=== PATIENT | female | born 1960 | race Caucasian/White ===

== ENCOUNTER 2024-10-11 14:51 | Observation (INO) | payer OTHER ==
[~2024-10-11] VITALS: Ht 167.6 cm; Wt 68.0 kg
[2024-10-11 16:03] LABS: BASOPHILS ABSOLUTE AUTO 0.08 K/mm3 (0.00-0.23); BASOPHILS PERCENT AUTO 1 % (0-2); EOSINOPHILS ABSOLUTE AUTO 0.05 K/mm3 (0.00-0.68); EOSINOPHILS PERCENT AUTO 1 % (0-6); Hematocrit 45.2 % (33.0-51.0); Hemoglobin 15.8 g/dL (11.5-16.0); IMMATURE GRAN ABSOLUTE AUTO 0.06 K/mm3 (0.00-0.10); IMMATURE GRAN PERCENT AUTO 1 % (0-1); LYMPHOCYTES ABSOLUTE AUTO 2.75 K/mm3 (0.84-5.20); LYMPHOCYTES PERCENT AUTO 29 % (21-46); MONOCYTES ABSOLUTE AUTO 0.54 K/mm3 (0.16-1.47); MONOCYTES PERCENT AUTO 6 % (4-13); Mean Corpuscular HGB 36.7 pg (26.0-34.0); Mean Corpuscular Volume 105 fL (80-100); Mean Platelet Volume 9.7 fL (9.1-12.4); NEUTROPHILS ABSOLUTE AUTO 5.96 K/mm3 (1.96-9.15); NEUTROPHILS PERCENT AUTO 63 % (41-73); Platelet Count 323 K/mm3 (150-400); RDW Coefficient Variation 12.9 % (11.7-14.2); RDW Standard Deviation 50.4 fL (35.1-46.3); White Blood Cell Count 9.44 K/mm3 (4.00-11.30)
[2024-10-11 16:32] LABS: U Amphetamine Screen Not Detected; U Barbituate Screen Not Detected; U Benzodiazapine Screen Not Detected; U Buprenorphine Screen Not Detected; U Cannabinoids Screen Not Detected; U Cocaine Screen Not Detected; U Methadone Screen Not Detected; U Methamphetamine Screen Not Detected; U Opiates Screen Not Detected; U Oxycodone Screen Not Detected; U Phencyclidine Screen Not Detected
[2024-10-11] MEDS ORDERED: Acetaminophen 325 MG TABLET PO ONE (16:35)
[2024-10-11 16:43] LABS: Ethanol (Alcohol), Blood, Med 141 mg/dL; Salicylate 4.2 mg/dL (2.8-20.0)
[2024-10-11 17:04] LABS: Alanine Aminotransfer (ALT/SGP 50 U/L (12-78); Albumin/Globulin Ratio 1.1 (0.8-1.8); Alk Phos 85 U/L (50-136); Anion Gap 13 mmol/L (3-11); Aspartate Aminotrans (AST/SGOT 36 U/L (12-37); Bilirubin, Total 0.3 mg/dL (0.1-1.0); Blood Urea Nitrogen 13 mg/dL (8-24); CO2, Blood 22 mmol/L (21-32); Calcium, Blood 9.1 mg/dL (8.5-10.1); Chloride, Blood 110 mmol/L (98-108); Creatinine, Blood 0.87 mg/dL (0.40-1.00); Globulin, Blood 3.8 g/dL (2.2-4.0); Glomerular Filtration Rate 74 (60-); Glucose, Blood 166 mg/dL (70-99); Potassium, Blood 3.7 mmol/L (3.5-5.5); Sodium, Blood 141 mmol/L (136-145); Total Protein, Blood 7.8 g/dL (6.4-8.2)
[2024-10-11 17:05] LABS: Acetaminophen, Random <2.0 ug/mL (10.0-30.0)
[2024-10-11 17:10] LABS: Source, Urine Clean Catch
[2024-10-11 17:12] LABS: Bilirubin, Urine Neg (Neg); Blood, Urine Neg (Neg); Color, Urine Yellow (P-Yellow); Glucose Qualitative, Urine Neg (Neg); Ketones, Urine Neg (Neg); Leukocyte Esterase, Urine Neg (Neg); Nitrite, Urine Neg (Neg); Protein, Urine 1+ (Neg); Specific Gravity, Urine 1.015 (1.003-1.022); Urobilinogen, Urine NORM (Normal)
[2024-10-11 17:32] LABS: Appearance, Urine Hazy (Clear); Red Blood Cells, Urine 0-2 /hpf (0-2); Squamous Epithelial Cells Few /hpf (Few); White Blood Cells, Urine 0-2 /hpf (0-5)
[2024-10-11 17:33] LABS: Bacteria Mod /hpf; Mucus Light (0-Heavy)
== END 2024-10-11 19:26 | disposition other institution (70) ==
LOC: ER 14:51 → EOR 14:52
PROVIDERS: ADMIT Emergency Medicine
DX: F32.3 Major depressive disorder, single episode, severe with psychotic features (principal); R45.851 Suicidal ideations
CPT/HCPCS: 80053; 80320; 81001; 84443; 85025; 87086; 93005; 93010; 99285-25; A9270; G0378; G0480

== ENCOUNTER 2024-10-11 17:25 | Inpatient (IN) | payer OTHER ==
[~2024-10-11] VITALS: Ht 165.1 cm; Wt 71.0 kg
[2024-10-11] MEDS ORDERED: Polyethylene Glycol 3350 17 gm PO PRN (17:50)
[2024-10-11] MEDS ORDERED: LORazepam 2 MG/ML 1ML Injection IM PRN (17:50)
[2024-10-11] MEDS ORDERED: Ondansetron 4 MG SoluTab MM PRN (17:55)
[2024-10-11] MEDS ORDERED: Aluminum Hydroxide 320MG/5ML 473 ML PO PRN (17:55)
[2024-10-11] MEDS ORDERED: DiphenhydrAMINE HCl 50 MG/ML 1ML Vial IM PRN (18:00)
[2024-10-11] MEDS ORDERED: Haloperidol Lactate Inj. 5 MG/ML Injection IM PRN (18:00)
[2024-10-11 22:23] VITALS: BP 112/72
--- NOTE | 2024-10-11 23:23 | NUR ---
ADMISSION SUMMARY Pt arrive at [facility] at 2100 accompanied by NANCY Pagan. Skin check completed by this lead technical writer and ROHAN Sun. No skin breakdown, lesions, rashes noted. Ulnar, popliteal, tibial, and dorsalis pedis pulses all 2+. Normal cap refill in fingers and toes. Pt was BIB [facility] after telling her sister that she felt like driving off a bridge. Pt stated that she just said the wrong thing and has never had any SI thoughts. 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 Her sister has placed the mother in a care facility, therefore depriving the patient of income. Pt stated to lead technical writer that she was upset about the timing of the action and that her sister only gave the pt 4 days notice of the move. Pt went on to say that there was lots of work available for caregivers and that she will probably earn more money from other clients than her monther. Pt denies SI, HI, and all hallucinations. Pt has Hx of numerous herniated discs. After admission was completed, pt was oriented to the unit and shown to her room. She received PRN APAP for headache pain 7/10w; pt was asleep at time of reassessment. Pt on q15m safety checks per unit protocol.
--- NOTE | 2024-10-12 05:55 | NUR ---
SHIFT SUMMARY Pt is A&O, calm, cooperative, eye contact is good. Pt denies SI, HI, and hallucinations. Pt endorses headache pain 7/10w, which started while she was in the ED. Pt s stated mood is tired, affect is somewhat constricted. Pt denies SI, HI, and hallucinations. Pt arrived on the [facility] at 2100 and admission was completed by this commercial lines underwriter; see admission summary in patient notes. After admission pt was given PRN APAP for her headache, oriented to the unit, and shown to her room. Pt was asleep at time of reassessment for headache. Staff continues q15m safety checks per unit protocol.
[2024-10-12 08:12] VITALS: BP 133/81
[2024-10-12 08:23] LABS: CHOL/HDL RATIO 2.4; Cholesterol 283 mg/dL (50-200); HDL Cholesterol 120 mg/dL (>39); LDL/HDL RATIO 1.2; Low Density Lipoprotein Chol 147 mg/dL (0-110); Triglycerides 80 mg/dL (30-160); Very Low Density Lipoprot Chol 16 mg/dL (6-32)
[2024-10-12] MEDS ORDERED: Multivitamins 1 Tab PO SCH (09:00)
[2024-10-12] MEDS ORDERED: Albuterol HFA200 ACT/6.7 GM INH INH PRN (15:25)
--- NOTE | 2024-10-12 17:16 | NUR ---
SHIFT NOTE PT WAS INTERACTIVE THIS SHIFT IN THE MILIEU. SHE ATTENDED ACTIVITIES AND WAS COOPERATIVE WITH MEDS. IT WAS EXPLAINED TO HER THAT SHE WOULD NOT BE GIVEN HER OWN INHALER SINCE IT WAS NOT CHECKED INTO THE PHARMACY BUT THERE WAS AN ORDER FOR ALBUTEROL PRN. SHE WAS MEDICATED WITH CLARITIN AND AFTER ORDER PLACED SHE STATES SHE TAKES IT BID NOT ONCE DAILY DURING ALLERGY SEASON. PT DENIES ALL HI/SI/AVH THIS SHIFT AND STATES SHE WAS JUST "BEING SARCASTIC" WHEN SHE SAID SHE WAS GOIG TO THROW HERSELF INTO THE OCEAN. PT EXPRESSED CONCERN ABOUT HER CAR AND IT POSSIBLY GETTING TOWED AND THIS WAS BROUGHT UP AT THE TEAM MEETING. SHE EXPRESSED HOW EAGER SHE IS TO D/C HOME AND SHOWED CONCERN ABOUT HER DOG.
[2024-10-12 20:12] VITALS: BP 129/85
--- NOTE | 2024-10-13 06:11 | NUR ---
SHIFT SUMMARY Pt is A&O, calm, cooperative, eye contact is good. Pt s mood is good, affect is euthymic. Pt denies SI, HI, and hallucinations. Pt denied current pain. Pt stated that she realized that her comments to her sister were inappropriate and are the reason she has been admitted. Pt was active on the milieu during the evening, watching TV and pleasantly interacting with staff and peers. Staff continues q15m safety check per unit protocol.
[2024-10-13 07:10] VITALS: BP 114/75
--- NOTE | 2024-10-13 16:55 | NUR ---
SHIFT SUMMARY PT A/O X4; PLEASANT AND COOPERATIVE WITH CARE. SHE DENIES SI, HI, AVTH. PT ATTENDED ALL GROUPS AND MEALS. SHE INTERACTS WELL WITH PEERS AND IS ACTIVE ON THE MILIEU. SHE HAD A VISITOR THIS SHIFT AND THE VISIT SEEMED TO GO WELL. PT WAS IN GOOD SPIRITS DURING VISIT. SHE CONTINUES TO MONITORED Q15 FOR SAFETY AND WELLNESS.
[2024-10-13 19:22] VITALS: BP 124/90
--- NOTE | 2024-10-14 04:12 | NUR ---
SHIFT SUMMARY PT IN MILIEU AT START OF SHIFT. SHE IS A&OX4, PLEASANT AND COOPERATIVE WITH CARE. SHE DENIES ANY SI, HI OR AVTH. SHE IS VERY TALKATIVE AND STATES SHE NEVER WAS TRULY SUICIDAL, JUST UPSET AND BEING SARCASTIC WITH THE DIETARY DIRECTOR. SHE HAD EVENING SNACK, WAS COMPLIANT WITH MEDICATIONS AND WENT TO BED. SHE HAS REMAINED IN BED THROUGHOUT THE NIGHT. Q15 MINUTE CHECKS TO CONTINUE BY STAFF PER UNIT PROTOCOL.
[2024-10-14 07:22] VITALS: BP 108/76
--- NOTE | 2024-10-14 17:20 | NUR ---
SHIFT SUMMARY PT A/O X4; PLEASANT AND COOPERATIVE WITH CARE. SHE DENIES SI, HI, AVTH. PT APPEARS TO BE IN GOOD SPIRITS AND HER AFFECT IS EUTHYMIC. PT C/O INCREASED ALLERGY SYMPTOMS WHILE BEING AT [facility]. PT REPORTS THAT SHE TAKES HER CLARITIN BID. THIS RN REACHED OUT TO PHARMACY TO CONFIRM THAT CLARITIN CAN BE TAKEN BID. PHARMACY SAID THAT 10 MG IS THE MAX DOSE. HOWEVER, 5 MG CAN BE TAKEN IN THE MORNING AND 5 CAN BE TAKEN BEFORE BED. PT C/O THE CLARITIN WEARING OFF AT NIGHT, SO HOPEFULLY THE SPLIT DOSE WILL PROVIDE LONGER RELIEF. PT PARTICIPATED IN ALL MEALS/GROUPS THIS SHIFT AND SHE INTERACTS WELL WITH HER PEERS.
[2024-10-14 20:20] VITALS: BP 137/88
--- NOTE | 2024-10-15 04:13 | NUR ---
SHIFT SUMMARY PT PRESENT IN MILIEU AT START OF SHIFT. A&OX3, PLEASANT AND COOPERATIVE WITH CARE. PT REPORTED HER MOOD "FINE" BUT REPORTED BEING DISAPPOINTED THAT SHE WAS NOT BEING DISCHARGED. SHE STATES SHE FEELS GUILTY FOR TAKING UP A BED WHEN SHE NEVER REALLY FELT SUICIDAL. PT WAS COMPLIANT WITH MEDS, HAD EVENING SNACK AND WENT TO BED AFTER WATCHING TV. SHE HAS REMAINED IN BED THROUGHOUT THE NIGHT. Q15 MINUTE CHECKS TO CONTINUE PER UNIT PROTOCOL.
[2024-10-15 09:01] VITALS: BP 135/106
[2024-10-15] MEDS ORDERED: DULoxetine HCL 30 MG Cap DR PO ONE (11:05)
[2024-10-15] MEDS ORDERED: DULoxetine HCL 30 MG Cap DR PO SCH (12:00)
--- NOTE | 2024-10-15 14:16 | NUR ---
IMPORTANT DISCHARGE INFORMATION PATIENT DISCHARGING 10/17/24 AT 1PM. JAIME POPE WILL BE PICKING HER UP AND TAKING HER TO [facility], [place] [address] IN [place]. HER INSURANCE TRANSPORT IS COVERING THIS EXPENCE. FOLLOW UP WITH PCP ON 10/23/24 AT 11AM. [facility]. PHARMACY: [facility] IN [facility]. FAX NUMBER IS RESOURCES: HOUSING AND UTILITY SUPPORT. THIS WAS LEFT IN HER CHART. MAKE SURE TO GIVE THIS INFORMATION AT DISCHARGE.
--- NOTE | 2024-10-15 17:39 | NUR ---
SHIFT NOTE PT DENIES SI/HI/AVH THIS SHIFT. SHE IS PLEASANT AND INTERACTING WELL WITH OTHER PATIENTS AND STAFF. SHE HAS REMAINED CALM THIS SHIFT AND COOPERATIVE WITH MEDS. SHE PARTICIPATED IN GROUPS AND WAS INVOLVED IN THE MILIEU. SHE IS PLANNED FOR D/C ON 10/17/24 AND SHE IS ARRANGED TO BE PICKED UP BY [facility] AT 1300 TO GET HER BACK TO HER CAR AT [facility] IN [place]. WILL CONTINUE TO PERFORM Q15 MIN SAFETY CHECKS PER UNIT PROTOCOL.
[2024-10-15 19:27] VITALS: BP 150/97
--- NOTE | 2024-10-16 04:25 | NUR ---
SHIFT SUMMARY: PATIENT WAS IN THE DINING ROOM AT THE BEGINNING OF THE SHIFT, FINISHING DINNER. SHE CAME OUT AND SAT IN THE DAY ROOM WATCHING TELEVISION. SHE GOT UP AND LEFT WHEN ANOTHER PATIENT TURNED ON SOMETHING SHE DIDN'T LIKE, AND WAS ABLE TO ANSWER PARASITOLOGIST QUESTIONS IN A LOGICAL AND LINEAR MANNER. SHE DENIED SUICIDAL IDEATION, THOUGHTS OF SELF HARMING AND A/V/T HALLUCINATIONS. SHE STATED, "I NEVER DID FEEL SUICIDAL. I'VE LEARNED NOT TO JOKE WITH MY SISTER OR THE POLICE." SHE PRESENTED FUTURE ORIENTED AND HAS SOME IDEAS TO MAKE MONEY. SHE PARTICIPATED IN SNACK AND WRAP UP GROUP AND WAS MEDICATION COMPLIANT. SHE WENT TO BED BUT WAS UP AGAIN ABOUT 2330 FOR IBUPROFEN AND TYLENOL, STATING SHE HAD A 7/10 HEADACHE. SHE QUESTIONED WHY SHE CANNOT HAVE CLARITIN 10 MG BID, AND WAS GIVEN MEDICATION EDUCATION REGARDING MAXIMUM DAILY DOSE AND WARNINGS REGARDING EXCEEDING THAT. SHE WENT BACK TO BED AND WAS NOTED TO BE RESTING QUIETLY WITH EYES CLOSED AND RESPIRATIONS CONFIRMED FOR THE REMAINDER OF THE SHIFT, WITH NO MORE C/O HEADACHE. CONTINUING TO MONITOR FOR SAFETY WITH Q15 MINUTE CHECKS.
[2024-10-16 08:53] VITALS: BP 131/85
[2024-10-16] MEDS ORDERED: DULO30 PO (14:36)
[2024-10-16] MEDS ORDERED: LORA10ER PO (14:37)
[2024-10-16] MEDS ORDERED: Flonase 0.05% N16 GM (14:37)
[2024-10-16] MEDS ORDERED: TRAZ50 PO (14:38)
[2024-10-16] MEDS ORDERED: MELA3 PO (14:38)
[2024-10-16] MEDS ORDERED: MULVITA PO (14:38)
--- NOTE | 2024-10-16 16:36 | NUR ---
SHIFT SUMMARY: PT ALERT, ORIENTED AND COOPERATIVE WITH CARE. COMPLIANT WITH MEDICATIONS DENIES SI, HI AND AVH. PT ACTIVE IN UNIT MILIEU. SPENT TIME IN THE DAY ROOM VISITING WITH PEERS, STAFF AND WATCHING TV. ATTENED MEALS AND WAS PRESENT ON THE UNIT. PT STATES STATES THAT SHE IS LOOKING FORWARD TO DISCHARGING TOMORROW.
[2024-10-16 19:19] VITALS: BP 135/86
[2024-10-16] MEDS ORDERED: Fluticasone 0.05% Nasal Spray SCH ×2 (21:00)
--- NOTE | 2024-10-17 00:09 | NUR ---
SHIFT SUMMARY: PATIENT WAS IN THE DINING ROOM FINISHING DINNER AT THE BEGINNING OF THE SHIFT. SHE THEN WENT INTO THE DAYROOM TO WATCH TELEVISION WITH STAFF AND PEERS. SHE WAS ABLE TO PARTICIPATE IN CRAYON GRADER, ANSWERING QUESTIONS IN A LOGICAL AND LINEAR MANNER. SHE STATED THAT SHE WAS "GLAD I HAVE FLONASE NOW". SHE REQUESTED AND WAS GIVEN IBUPROFEN AND APAP WITH HER EVENING MEDICATIONS FOR HEADACHE 07/23, "BECAUSE I DON'T WANT IT TO GET WORSE WHILE I'M SLEEPING". SHE WENT TO SNACK AND WRAP UP GROUP AT 2030. SHE DENIED SUICIDAL IDEATION, THOUGHTS OF SELF HARMING AND A/V/T HALLUCINATIONS. SHE SPENT MORE TIME IN THE DAY ROOM WATCHING TELEVISION, THEN WENT TO BED, WHERE SHE WAS NOTED TO BE RESTING QUIETLY WITH EYES CLOSED AND RESPIRATIONS CONFIRMED. CONTINUING TO MONITOR FOR SAFETY WITH Q15 MINUTE CHECKS.
--- NOTE | 2024-10-17 04:55 | NUR ---
SHIFT SUMMARY: RESUMED CARE AT 0012 FROM PREVIOUS RN. PT HAS SLEPT THROUGH THE NIGHT. PLEASE SEE PREVIOUS NOTES MADE. WILL CONTINUE TO MONITOR FOR SAFETY AND WELLNESS.
[2024-10-17 08:10] VITALS: BP 125/80
--- NOTE | 2024-10-17 11:46 | NUR ---
RX FAXED AND CALLED INTO [facility] AT [facility]. DISCHARGE INSTRUCTIONS REVIEWED WITH PATIENT, STATED UNDERSTANDING AND DENIED QUESTIONS. PROVIDED WITH SAFETY PLAN THAT WAS FILLED OUT WITH DEVELOPMENT TRAINERJOSE ELIAS ON 10/16/24.
--- NOTE | 2024-10-17 13:20 | NUR ---
DISCHARGE NOTE: PT DISCHARGED HOME. ARRANGED TRANSPORT HAD NOT ARRIVED. THIS RN WENT TO CHECK PT STATED THAT HER FRIEND WAS SUPPOSED TO BE HERE WELL. FRIEND LOCATED OUT IN PARKING LOT. FRIEND STATED, "THE TAXI WAS HERE ABOUT 15 MIN AGO. I GAVE THEM A $20 AND SENT THEM AWAY, I AM HER RIDE". THIS RN SPOKE WITH PATIENT WHO STATED THAT SHE WANTED TO GO WITH HER FRIEND. PT PROVIDED WITH DISCHARGE INSTRUCTIONS AND BELONGINGS RETURNED BY CASSY CRUZ. PT AMBULATED OUT OF UNIT WITHOUT DIFFICULTY, DISCHARGE INSTRUCTIONS AND BELONGINGS IN HAND.
== END 2024-10-17 13:17 | disposition home or self-care (01) | DRG 885 ==
LOC: BHU 17:25
PROVIDERS: ADMIT Student in an Organized Health Care Education/Training Program
DX: F33.9 Major depressive disorder, recurrent, unspecified (principal); R45.851 Suicidal ideations; F29 Unspecified psychosis not due to a substance or known physiological condition; Z79.899 Other long term (current) drug therapy
CPT/HCPCS: 36415; 80061; 83036; A9270